=== PATIENT | male | born 1945 | race Caucasian/White ===

== ENCOUNTER 2018-06-05 18:04 | Inpatient (IN) ==
[2018-06-05] MEDS ORDERED: Morphine Inj 4 MG/ML Vial ONE (18:09)
[2018-06-05] MEDS ORDERED: Lidocaine 1%/Epinephrine 1:100,000 Inj 50 ML Vial INFILTRATN ONE (18:20)
[2018-06-05 18:27] LABS: Baso # (Auto) 0.2 th/mm3 (0.0-0.2); Baso % (Auto) 0.9 % (0.0-2.0); Eos # (Auto) 0.9 th/mm3 (0.0-0.4); Eos % (Auto) 4.2 % (0.0-4.0); Hematocrit 37.2 % (39.0-51.0); Hemoglobin 12.3 gm/dL (13.0-17.0); Lymph # (Auto) 1.2 th/mm3 (1.0-4.8); Mean Corpuscular Hemoglobin 27.6 pg (27.0-34.0); Mean Corpuscular Volume 83.6 fL (80.0-100.0); Mean Platelet Volume 8.4 fL (7.0-11.0); Mono # (Auto) 1.2 th/mm3 (0.0-0.9); Mono % (Auto) 5.9 % (0.0-8.0); Platelet Count 284 th/mm3 (150-450); Red Blood Count 4.45 mil/mm3 (4.50-5.90); Red Cell Distribution Width 18.4 % (11.6-17.2); White Blood Count 20.5 th/mm3 (4.0-11.0)
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
[2018-06-05 18:37] LABS: Activated Partial Thrombo Time 21.5 sec (23.4-31.7); INR 1.1 Ratio; Prothrombin Time 10.8 sec (9.8-11.6)
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
--- NOTE | 2018-06-05 18:51 | XR ---
EXAM DATE: 06/05/2018 6:35 PM EST AGE/SEX: 89 years / Male INDICATIONS: Laceration to anterior proximal tibia. CLINICAL DATA: This is the patient's initial encounter. Patient reports that signs and symptoms have been present for 1 day and indicates a pain score of 0/10. MEDICAL/SURGICAL HISTORY: None. None. COMPARISON: . FINDINGS: Bony structures are intact and in normal alignment. Joints are intact. Mild degenerative osteoarthrit is most prominently of the patellofemoral compartment. Osseous density is normal. Soft tissues are u nremarkable. No radiopaque foreign bodies seen. CONCLUSION: 1. No acute fracture. Electronically signed by: Lamonte Garg MD 06/05/2018 6:50 PM EST
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
[2018-06-05 18:56] LABS: Dohle Bodies Present; Eosinophils 5 % (0-4); Lymphocytes 8 % (9-44); Monocytes 2 % (0-8); Platelet Estimate Normal (Normal); Platelet Morphology Normal (Normal)
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
[2018-06-05] MEDS ORDERED: Naloxone Inj 0.4 MG/ML Vial IV.PUSH PRN (19:45)
[2018-06-05] MEDS ORDERED: Bisacodyl 10 MG Supp RECTAL PRN (19:45)
[2018-06-05] MEDS ORDERED: Post-op Orders (for Pharmacy) OTHER ONE (19:45)
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
[2018-06-05] MEDS ORDERED: levETIRAcetam 500 MG Tablet PO SCH (21:00)
[2018-06-05] MEDS ORDERED: Morphine Sulfate Inj 2 MG/ML Vial IV.PUSH PRN (21:23)
[2018-06-05] MEDS ORDERED: Sodium Chloride 0.9% 2 ML Flush PRN IV.FLUSH (21:28)
[2018-06-05] MEDS ORDERED: Clevidipine Inj 25 MG/50 ML VIAL IV.CONT PRN (21:53)
[2018-06-05] MEDS ORDERED: Dextrose 50% in Water 50 ML Vial IV.PUSH PRN (22:17)
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
[2018-06-05] MEDS: Senna/Docusate Sodium 8.6/50 MG Tablet PO SCH (23:10)
[2018-06-05] MEDS: Famotidine 20 MG Tablet PO SCH (23:10)
[2018-06-05] MEDS: Latanoprost 0.005% Opth Drops 2.5 ML Bottle EACH EYE SCH (23:23)
[2018-06-05] MEDS: Cyclopentolate 1% Opth Drops 2 ML Bottle EACH EYE SCH (23:23)
[2018-06-05] MEDS: Dorzolamide-Timolol 2/0.5% Opth Drops 10 ML Bottle EACH EYE SCH (23:24)
[2018-06-05] MEDS: Polymyxin/Trimethop Opth Drops 10 ML Bottle EACH EYE SCH (23:24)
[2018-06-05] MEDS: Ketoralac 0.5% Opth Drops 5 ML Bottle EACH EYE SCH (23:24)
[2018-06-06] MEDS: Insulin NovoLOG Aspart Correctional Sugar Inj SQ SCH ×4 (01:14→19:58)
[2018-06-06] MEDS: Polymyxin/Trimethop Opth Drops 10 ML Bottle EACH EYE SCH ×8 (01:14→21:15)
[2018-06-06 05:21] LABS: Baso # (Auto) 0.1 th/mm3 (0.0-0.2); Baso % (Auto) 0.8 % (0.0-2.0); Eos # (Auto) 0.3 th/mm3 (0.0-0.4); Eos % (Auto) 1.7 % (0.0-4.0); Hematocrit 32.6 % (39.0-51.0); Hemoglobin 10.4 gm/dL (13.0-17.0); Lymph # (Auto) 1.3 th/mm3 (1.0-4.8); Mean Corpuscular Hemoglobin 27.5 pg (27.0-34.0); Mean Platelet Volume 9.1 fL (7.0-11.0); Mono # (Auto) 1.7 th/mm3 (0.0-0.9); Mono % (Auto) 10.2 % (0.0-8.0); Neut # (Auto) 13.1 th/mm3 (1.8-7.7); Neut % (Auto) 79.3 % (16.0-70.0); Platelet Count 248 th/mm3 (150-450); Red Blood Count 3.79 mil/mm3 (4.50-5.90); Red Cell Distribution Width 18.6 % (11.6-17.2); White Blood Count 16.6 th/mm3 (4.0-11.0)
[2018-06-06 05:34] LABS: Calcium 7.9 mg/dL (8.5-10.1); Carbon Dioxide 25.8 meq/L (21.0-32.0); Potassium 4.1 meq/L (3.5-5.1)
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
[2018-06-06] MEDS: Ketoralac 0.5% Opth Drops 5 ML Bottle EACH EYE SCH ×4 (06:50→23:53)
[2018-06-06] MEDS ORDERED: DIFLUPREDNATE EACH EYE SCH (09:00)
[2018-06-06] MEDS: Brimonidine 0.2% Opth Drops 5 ML Bottle EACH EYE SCH ×3 (09:19→17:42)
[2018-06-06] MEDS: Dorzolamide-Timolol 2/0.5% Opth Drops 10 ML Bottle EACH EYE SCH ×2 (09:20→21:14)
[2018-06-06] MEDS: Cyclopentolate 1% Opth Drops 2 ML Bottle EACH EYE SCH ×2 (09:20→21:14)
[2018-06-06] MEDS: amLODIPine 10 MG Tablet PO SCH (09:21)
[2018-06-06] MEDS: Calcium/Vitamin D 250/125 MG Tablet PO SCH ×3 (09:21→17:42)
[2018-06-06] MEDS: Folic Acid 1 MG Tablet PO SCH (09:21)
[2018-06-06] MEDS: Famotidine 20 MG Tablet PO SCH (09:21)
[2018-06-06] MEDS: Senna/Docusate Sodium 8.6/50 MG Tablet PO SCH ×2 (09:21→21:14)
[2018-06-06] MEDS: Gabapentin 100 MG Capsule PO SCH (09:21)
[2018-06-06] MEDS: Sodium Chloride 0.9% 2 ML Flush BID IV.FLUSH SCH ×2 (09:21→21:14)
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
[2018-06-06] MEDS: levETIRAcetam 500 MG Tablet PO SCH ×2 (12:00→21:14)
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
--- NOTE | 2018-06-06 15:28 | MR ---
EXAM DATE: 06/06/2018 3:06 PM EST AGE/SEX: 89 years / Male INDICATIONS: Trauma. CLINICAL DATA: This is the patient's initial encounter. Patient reports that signs and symptoms have been present for 1 day and indicates a pain score of 0/10. MEDICAL/SURGICAL HISTORY: Renal failure, chronic. Hypertension. Diabetes mellitus type II. G laucoma. . Heart valve replacement. COMPARISON: [facility] [place], CT CERVICAL SPINE W/O CONTRAST, 06/05/2018. . TECHNIQUE: Multiplanar, multisequence MRI examination of the cervical spine was performed without co ntrast. FINDINGS: Vertebrae: Normal vertebral body height. Homogeneous marrow signal. Alignment: Normal. Cord: Normal configuration and signal. Post Fossa: The cerebellar tonsils are normal in position. C2-C3: Left paracentral focal disc herniation is noted and results in effacement of the left lateral recess and some mass effect upon the left anterior lateral aspect of the cervical cord. Extruded fra gments extend superiorly at this level. Mild bilateral foraminal narrowing is noted. C3-C4: Left paracentral/lateral focal disc bulge is noted with extruded fragment extending superiorl y and effacing the left lateral recess. Moderate bilateral foraminal narrowing is noted. Mild spinal stenosis is noted. C4-C5: Moderate spinal stenosis, severe left neuroforaminal narrowing and moderate right neuroforami nal narrowing are noted secondary to diffuse asymmetric disc osteophyte complex to the left, uncovert ebral joint spurring and facet joint hypertrophy bilaterally. C5-C6: Mild spinal stenosis, severe left neuroforaminal narrowing and moderate right neuroforaminal are noted secondary to diffuse asymmetric disc osteophyte complex to the left, uncovertebral joint sp urring and facet joint hypertrophy bilaterally. C6-C7: Mild spinal stenosis and mild bilateral foraminal narrowing are noted secondary to diffuse d isc osteophyte complex, uncovertebral joint spurring and facet joint hypertrophy bilaterally. C7-T1: No epidural impressions seen. CONCLUSION: 1. Moderate spinal stenosis, severe left neuroforaminal narrowing and moderate right neuroforaminal narrowing are noted at C4-5 secondary to diffuse asymmetric disc osteophyte complex to the left, unco vertebral joint spurring and facet joint hypertrophy bilaterally. 2. Mild spinal stenosis, severe left neuroforaminal narrowing and moderate right neuroforaminal are noted at C5-6 secondary to diffuse asymmetric disc osteophyte complex to the left, uncovertebral join t spurring and facet joint hypertrophy bilaterally. 3. Mild spinal stenosis and mild bilateral foraminal narrowing at C6-7. 4. Left paracentral focal disc herniation and extruded fragment extending superiorly at C2-3. 5. Left paracentral/lateral focal disc bulge with extruded fragment extending superiorly at C3-4. 6. Moderate bilateral foraminal narrowing at C3-4 and mild bilateral foraminal narrowing at C2-C3. Electronically signed by: Akbar Stein MD 06/06/2018 3:27 PM EST
--- NOTE | 2018-06-06 16:13 | XR ---
EXAM DATE: 06/06/2018 4:08 PM EST AGE/SEX: 89 years / Male INDICATIONS: Follow up fracture. CLINICAL DATA: This is the patient's subsequent encounter. Patient reports that signs and symptoms h ave been present for 2 days and indicates a pain score of Nonresponsive. MEDICAL/SURGICAL HISTORY: Non-responsive. Non-responsive. COMPARISON: No prior exams available for comparison. FINDINGS: Acute minimally displaced fracture involving the left distal clavicle is noted. CONCLUSION: Acute minimally displaced fracture involving left distal clavicle. Electronically signed by: Akbar Stein MD 06/06/2018 4:11 PM EST
--- NOTE | 2018-06-06 17:18 | CT ---
EXAM DATE: 06/06/2018 5:10 PM EST AGE/SEX: 89 years / Male INDICATIONS: Intracerebral Hemorrhage CLINICAL DATA: This is the patient's subsequent encounter. Patient reports that signs and symptoms h ave been present for 1 day and indicates a pain score of 3/10. MEDICAL/SURGICAL HISTORY: Chronic obstructive pulmonary disease. Hypertension. Diabetes. None. RADIATION DOSE: 53.88 CTDI (mGy) COMPARISON: [facility] [place], CT HEAD W/O CONTRAST, 06/05/2018. . TECHNIQUE: CT of the head without contrast. Using automated exposure control and adjustment of the mA and/or kV according to patient size, radiation dose was kept as low as reasonably achievable to ob tain optimal diagnostic quality images. DICOM format image data is available electronically for revi ew and comparison. FINDINGS: Redemonstration of hemorrhagic contusions in the anterior left temporal mid to low convexities. Previ ously noted subdural hematoma in the right temporoparietal mid convexities is not well demonstrated o n current exam. However, there are subarachnoid blood products noted in the parietal mid to high conv exities and small amount of intraventricular blood products. Blood products appear to extend to the f mary. Ventricles are midline and stable in size. No significant midline shift. Basilar cisterns are in tact. Brainstem and cerebellum are intact. There is a large evolving right scalp hematoma. CONCLUSION: 1. Evolving anterior left temporal hemorrhagic contusions. 2. Previously noted subdural hematoma in the right temporal parietal mid convexities is not well dem onstrated on this exam. 3. Subarachnoid hemorrhage overlying the parietal mid to high convexities with small amount of intra ventricular blood products. 4. No midline shift or herniation at this time. . Electronically signed by: Lamonte Garg MD 06/06/2018 5:15 PM EST
[2018-06-06] MEDS: Latanoprost 0.005% Opth Drops 2.5 ML Bottle EACH EYE SCH (21:15)
--- NOTE | 2018-06-06 21:41 | ECHRPT ---
Indication: CONCLUSIONS Normal left ventricular size. Wall thickness is normal. The left ventricular systolic function is low normal with an estimated ejection fraction in the rang e of 50- 55%. The left atrial size is upper limits of normal. Trace mitral valve regurgitation. Mitral annular calcification is present. The aortic valve prosthesis Aortic valve area is 1.3 cm. Aortic valve mean gradient is 20.5 mmHg. The estimated pulmonary arterial pressure is 36 mmHg. BP: / HR: Rhythm: MEASUREMENTS (Male / Female) Normal Values Technical Quality: 2D ECHO LV Diastolic Diameter PLAX 4.5 cm 4.2 - 5.9 / 3.9 - 5.3 cm LV Systolic Diameter PLAX 3.1 cm IVS Diastolic Thickness 1.0 cm 0.6 - 1.0 / 0.6 - 0.9 cm LVPW Diastolic Thickness 0.7 cm 0.6 - 1.0 / 0.6 - 0.9 cm LV Relative Wall Thickness 0.4 RV Internal Dim ED PLAX 2.0 cm LVOT Diameter 2.0 cm LA Systolic Diameter LX 3.7 cm 3.0 - 4.0 / 2.7 - 3.8 cm DOPPLER AV Peak Velocity 312.5 cm/s AV Peak Gradient 39.1 mmHg AV Mean Gradient 20.5 mmHg AV Velocity Time Integral 66.4 cm LVOT Peak Velocity 127.0 cm/s LVOT Peak Gradient 6.5 mmHg LVOT Velocity Time Integral 26.7 cm AV Area Cont Eq vti 1.3 cm AV Area Cont Eq pk 1.3 cm Mitral E Point Velocity 112.0 cm/s Mitral A Point Velocity 104.0 cm/s Mitral E to A Ratio 1.1 LV E' Lateral Velocity 6.2 cm/s Mitral E to LV E' Lateral Ratio 17.9 LV E' Septal Velocity 4.9 cm/s Mitral E to LV E' Septal Ratio 23.0 TR Peak Velocity 255.0 cm/s TR Peak Gradient 26.0 mmHg Right Atrial Pressure 10.0 mmHg Pulmonary Artery Systolic Pressu 36.0 mmHg Right Ventricular Systolic Press 36.0 mmHg FINDINGS LEFT VENTRICLE Normal left ventricular size. Wall thickness is normal. The left ventricular systolic function is low normal with an estimated ejection fraction in the rang e of 50- 55%. RIGHT VENTRICLE Normal right ventricular size and systolic function. LEFT ATRIUM The left atrial size is upper limits of normal. RIGHT ATRIUM The right atrial size is normal. ATRIAL SEPTUM Normal atrial septal thickness without atrial level shunting by limited color doppler interrogation. AORTA The aortic root and proximal ascending aorta are normal in size on limited imaging. MITRAL VALVE Trace mitral valve regurgitation. Mitral annular calcification is present. AORTIC VALVE The aortic valve prosthesis Aortic valve area is 1.3 cm. Aortic valve mean gradient is 20.5 mmHg. TRICUSPID VALVE The estimated pulmonary arterial pressure is 36 mmHg. PULMONARY VALVE No pulmonary valve regurgitation or stenosis. VESSELS The inferior vena cava is normal in size. PERICARDIUM No pericardial effusion. Jono Burgos MD, FACC, [facility] (Electronically Signed) Final Date:06 June 2018 20:22
[2018-06-07] MEDS: Insulin NovoLOG Aspart Correctional Sugar Inj SQ SCH ×4 (00:41→18:56)
[2018-06-07 04:35] LABS: Baso # (Auto) 0.2 th/mm3 (0.0-0.2); Baso % (Auto) 1.1 % (0.0-2.0); Eos # (Auto) 0.6 th/mm3 (0.0-0.4); Eos % (Auto) 4.4 % (0.0-4.0); Hematocrit 29.2 % (39.0-51.0); Hemoglobin 9.5 gm/dL (13.0-17.0); Lymph # (Auto) 1.3 th/mm3 (1.0-4.8); Lymph % (Auto) 9.6 % (9.0-44.0); Mean Corpuscular HGB Conc 32.6 % (32.0-36.0); Mean Corpuscular Hemoglobin 27.9 pg (27.0-34.0); Mean Corpuscular Volume 85.5 fL (80.0-100.0); Mean Platelet Volume 8.9 fL (7.0-11.0); Mono # (Auto) 1.9 th/mm3 (0.0-0.9); Mono % (Auto) 13.7 % (0.0-8.0); Neut # (Auto) 9.8 th/mm3 (1.8-7.7); Neut % (Auto) 71.2 % (16.0-70.0); Platelet Count 233 th/mm3 (150-450); Red Blood Count 3.41 mil/mm3 (4.50-5.90); Red Cell Distribution Width 18.6 % (11.6-17.2); White Blood Count 13.8 th/mm3 (4.0-11.0)
[2018-06-07 04:45] LABS: Alanine Aminotransferase 13 U/L (12-78); Albumin 3.1 g/dL (3.4-5.0); Alkaline Phosphatase 85 U/L (45-117); Anion Gap 13 meq/L (5-15); Aspartate Aminotransferase 16 U/L (15-37); Blood Urea Nitrogen 39 mg/dL (7-18); Calcium 7.8 mg/dL (8.5-10.1); Chloride 103 meq/L (98-107); Glomerular Filtration Rate 7 mL/min (>89); Glucose,Random 80 mg/dL (74-106); Potassium 4.2 meq/L (3.5-5.1); Sodium 139 meq/L (136-145)
[2018-06-07] MEDS: Polymyxin/Trimethop Opth Drops 10 ML Bottle EACH EYE SCH ×8 (05:15→21:54)
[2018-06-07] MEDS: Ketoralac 0.5% Opth Drops 5 ML Bottle EACH EYE SCH ×3 (05:15→18:19)
[2018-06-07] MEDS ORDERED: Haloperidol Inj 5 MG/ML Ampul IV.PUSH PRN (09:11)
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
[2018-06-07] MEDS: Cyclopentolate 1% Opth Drops 2 ML Bottle EACH EYE SCH ×2 (09:52→21:51)
[2018-06-07] MEDS: Dorzolamide-Timolol 2/0.5% Opth Drops 10 ML Bottle EACH EYE SCH ×2 (09:52→21:50)
[2018-06-07] MEDS: Brimonidine 0.2% Opth Drops 5 ML Bottle EACH EYE SCH ×3 (09:52→18:19)
[2018-06-07] MEDS: Folic Acid 1 MG Tablet PO SCH (09:52)
[2018-06-07] MEDS: levETIRAcetam 500 MG Tablet PO SCH ×2 (09:53→21:51)
[2018-06-07] MEDS: Senna/Docusate Sodium 8.6/50 MG Tablet PO SCH ×2 (09:53→21:54)
[2018-06-07] MEDS: Famotidine 20 MG Tablet PO SCH ×2 (09:53→21:53)
[2018-06-07] MEDS: amLODIPine 10 MG Tablet PO SCH (09:53)
[2018-06-07] MEDS: Calcium/Vitamin D 250/125 MG Tablet PO SCH ×3 (09:53→18:06)
[2018-06-07] MEDS: Sod Chloride 0.9% Inj 1,000 ML IV.CONT SCH (09:53)
[2018-06-07] MEDS: Gabapentin 100 MG Capsule PO SCH (09:53)
[2018-06-07] MEDS: Sodium Chloride 0.9% 2 ML Flush BID IV.FLUSH SCH ×2 (09:53→21:53)
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
[2018-06-07] MEDS ORDERED: Sod Chloride 0.9% Inj 1,000 ML OTHER PRN ×2 (15:38)
[2018-06-07] MEDS ORDERED: Albumin Human 25% Inj 100 ML IV.SIG PRN (15:38)
[2018-06-07] MEDS ORDERED: Acetaminophen 325 MG Tablet PO PRN (15:38)
[2018-06-07] MEDS ORDERED: Gelatin 12 MM/7 MM Topical Foam TOPICAL PRN (15:38)
[2018-06-07] MEDS ORDERED: Sod Chloride 0.9% Inj 1,000 ML IV.CONT PRN (15:38)
[2018-06-07] MEDS ORDERED: Heparin 10,000 UNITS/10 ML Vial (for IV use) OTHER PRN ×2 (15:38)
--- NOTE | 2018-06-07 16:18 | P.PNNP ---
Subjective Interval history: Alert and awake. Not oriented. Does not have any complaints. Denies any shortness of breath, chest pain, nausea, or vomiting. <Anel Christian - Last Filed: 06/07/18 16:13> Physical Exam Vital signs: Vital Signs 06/06/18 16:35 06/06/18 17:11 06/06/18 17:12 Temperature Pulse Rate 85 83 Respiratory Rate 26 H Blood Pressure 127/61 Pulse Oximetry 97 06/06/18 18:00 06/06/18 19:00 06/06/18 19:05 Temperature Pulse Rate 74 71 71 Respiratory Rate 18 17 17 Blood Pressure 141/63 H Pulse Oximetry 06/06/18 19:43 06/06/18 20:00 06/06/18 21:00 Temperature 97.7 F Pulse Rate 79 72 Respiratory Rate 21 17 Blood Pressure 143/65 H Pulse Oximetry 98 96 06/06/18 21:05 06/06/18 22:00 06/06/18 23:00 Temperature Pulse Rate 72 75 83 Respiratory Rate 15 22 31 H Blood Pressure 143/65 H Pulse Oximetry 96 92 L 06/06/18 23:05 06/07/18 00:00 06/07/18 01:00 Temperature 99.1 F Pulse Rate 76 90 84 Respiratory Rate 19 19 20 Blood Pressure 158/65 H Pulse Oximetry 94 L 06/07/18 01:05 06/07/18 02:00 06/07/18 03:00 Temperature Pulse Rate 84 82 86 Respiratory Rate 19 18 19 Blood Pressure 146/66 H Pulse Oximetry 06/07/18 03:15 06/07/18 04:00 06/07/18 04:01 Temperature 98.8 F Pulse Rate 92 H 90 91 H Respiratory Rate 30 H 20 32 H Blood Pressure 182/84 H 172/75 H Pulse Oximetry 06/07/18 08:00 06/07/18 08:01 06/07/18 08:50 Temperature 98.4 F Pulse Rate 88 88 90 Respiratory Rate 21 19 Blood Pressure 179/81 H Pulse Oximetry 96 06/07/18 09:01 06/07/18 09:11 06/07/18 09:41 Temperature Pulse Rate 91 H Respiratory Rate 20 Blood Pressure 188/81 H 189/78 H Pulse Oximetry 92 L 99 06/07/18 10:00 06/07/18 10:01 06/07/18 11:00 Temperature Pulse Rate 86 85 89 Respiratory Rate 18 18 23 Blood Pressure 159/70 H Pulse Oximetry 99 99 06/07/18 11:22 06/07/18 12:00 06/07/18 12:01 Temperature Pulse Rate 89 87 88 Respiratory Rate 39 H 21 21 Blood Pressure 179/74 H 170/71 H Pulse Oximetry Intake & Output 06/06/18 06/07/18 06/07/18 18:59 06:59 18:59 Intake Total 300 / 300 240 / 240 Output Total 0 / 0 0 / 0 Balance 300 / 300 240 / 240 Weight 70 kg 66.8 kg Intake: Oral 300 / 300 240 / 240 Output: Urine 0 / 0 0 / 0 Other: # Bowel Movements 0 Weight On Admission 70 kg Narrative: GENERAL: Elderly male, confused. HEENT: Right scalp laceration s/p repair CARDIOVASCULAR: Normal rate and regular rhythm. Murmur. AVF left upper extremity positive thrill and bruit,. RESPIRATORY: Clear to auscultation bilaterally. GASTROINTESTINAL: Abdomen is soft, non-tender, non-distended. Normal active bowel sounds MUSCULOSKELETAL: Extremities without cyanosis, or edema. NEURO: Awake and oriented to self only. Confused. Moves all ext x4 spontaneously. PSYCH: Confused. <Anel Christian - Last Filed: 06/07/18 16:13> Vital signs: Vital Signs 06/08/18 19:00 06/08/18 19:06 06/08/18 19:55 Temperature Pulse Rate 96 H 93 H Respiratory Rate 18 19 Blood Pressure 149/66 H Pulse Oximetry 98 94 L 100 06/08/18 20:00 06/08/18 20:06 06/08/18 21:00 Temperature 97.9 F Pulse Rate 97 H 94 H 97 H Respiratory Rate 21 18 24 Blood Pressure 165/70 H Pulse Oximetry 97 98 06/08/18 21:06 06/08/18 22:00 06/08/18 22:06 Temperature Pulse Rate 97 H 93 H 93 H Respiratory Rate 20 19 21 Blood Pressure 175/77 H 161/70 H Pulse Oximetry 06/08/18 23:00 06/08/18 23:06 06/09/18 00:00 Temperature Pulse Rate 91 H 90 94 H Respiratory Rate 22 20 24 Blood Pressure 156/68 H Pulse Oximetry 96 94 L 06/09/18 00:06 06/09/18 01:00 06/09/18 01:06 Temperature Pulse Rate 93 H 95 H 95 H Respiratory Rate 18 22 23 Blood Pressure 180/78 H 177/76 H 177/76 H Pulse Oximetry 99 98 06/09/18 01:30 06/09/18 02:00 06/09/18 02:01 Temperature Pulse Rate 92 H 92 H Respiratory Rate 18 21 24 Blood Pressure 177/77 H Pulse Oximetry 95 97 06/09/18 02:10 06/09/18 03:00 06/09/18 03:01 Temperature Pulse Rate 87 82 80 Respiratory Rate 21 22 17 Blood Pressure 163/72 H 138/63 Pulse Oximetry 100 98 98 06/09/18 04:00 06/09/18 04:01 06/09/18 04:57 Temperature 97.6 F Pulse Rate 78 77 79 Respiratory Rate 22 16 22 Blood Pressure 145/67 H 148/68 H Pulse Oximetry 100 100 98 06/09/18 05:00 06/09/18 06:00 06/09/18 06:58 Temperature Pulse Rate 79 76 77 Respiratory Rate 18 13 13 Blood Pressure 150/67 H 112/58 L Pulse Oximetry 100 95 95 06/09/18 07:00 06/09/18 07:41 06/09/18 07:58 Temperature Pulse Rate 76 77 Respiratory Rate 13 13 Blood Pressure 163/75 H Pulse Oximetry 94 L 95 95 06/09/18 08:00 06/09/18 08:54 06/09/18 08:58 Temperature 98.3 F Pulse Rate 83 84 86 Respiratory Rate 15 21 33 H Blood Pressure 163/75 H 172/99 H 182/74 H Pulse Oximetry 97 100 100 06/09/18 09:00 06/09/18 09:58 06/09/18 10:00 Temperature Pulse Rate 87 82 79 Respiratory Rate 28 H 16 13 Blood Pressure 147/66 H Pulse Oximetry 100 100 100 06/09/18 10:58 06/09/18 11:00 06/09/18 12:00 Temperature 97.8 F 97.8 F Pulse Rate 73 73 81 Respiratory Rate 15 15 16 Blood Pressure 118/58 L 146/67 H Pulse Oximetry 100 100 06/09/18 12:01 06/09/18 16:00 Temperature 97.7 F Pulse Rate 83 78 Respiratory Rate 20 20 Blood Pressure 146/67 H 149/69 H Pulse Oximetry Intake & Output 06/08/18 06/09/18 06/09/18 18:59 06:59 18:59 Intake Total 480 / 480 860 / 860 860 / 860 Output Total 1999 0 / 0 0 / 0 Balance -1520 / -1520 860 / 860 860 / 860 Weight 67.1 kg 64.8 kg Intake: IV 500 / 500 500 / 500 NS Inj 1,000 ML @ 30 mls/hr IV. 500 / 500 500 / 500 CONT .Q24H ELIZABETH Rx#:[id number] Oral 480 / 480 360 / 360 360 / 360 Output: Urine 0 / 0 0 / 0 Hemodialysis Amount 1999 Other: Date of Last Bowel Movement 06/08/18 06/08/18 06/08/18 # Bowel Movements 1 0 <Hernán Martinez - Last Filed: 06/09/18 18:06> Assessment and Plan - Assessment (1) End-stage renal disease on hemodialysis Code(s): N18.6 - End stage renal disease; Z99.2 - Dependence on renal dialysis Status: Acute Plan: End stage renal disease on Hemodialysis. Left AVF with positive thrill and bruit. Electrolytes and fluid balance stable. Will proceed with HD on regular scheduled days, unless needed. Avoid IVF. Will monitor electrolytes. Hemodialysis planned for tomorrow. (2) Hypertension Code(s): I10 - Essential (primary) hypertension Status: Acute Qualifiers: Hypertension type: unspecified Qualified Code(s): I10 - Essential (primary ) hypertension Plan: Elevated, on amlodipine. Will add hydralazine. (3) Diabetes Code(s): E11.9 - Type 2 diabetes mellitus without complications Status: Acute Qualifiers: Diabetes mellitus type: type 2 Diabetes mellitus [facility] insulin use: unspecified [facility] insulin use status Diabetes mellitus complication status : with kidney complications Diabetes mellitus complication detail: with chronic kidney disease Chronic kidney disease stage: on chronic dialysis Qualified Code(s): E11.22 - Type 2 diabetes mellitus with diabetic chronic kidney disease; N18.6 - End stage renal disease; Z99.2 - Dependence on renal dialysis Plan: Maintain blood sugars between 140 mg/dl to 180 mg/dl while hospitalized. <Anel Christian - Last Filed: 06/07/18 16:13> - Assessment (1) End-stage renal disease on hemodialysis Code(s): N18.6 - End stage renal disease; Z99.2 - Dependence on renal dialysis Status: Acute Plan: Patient seen and examined, agree with above. Patient with end stage renal disease, on HD TTS. Will proceed with HD as schedule. No urgent need for HD. (2) Hypertension Code(s): I10 - Essential (primary) hypertension Status: Acute Qualifiers: Hypertension type: unspecified Qualified Code(s): I10 - Essential (primary ) hypertension (3) Diabetes Code(s): E11.9 - Type 2 diabetes mellitus without complications Status: Acute Qualifiers: Diabetes mellitus type: type 2 Diabetes mellitus [employer] terminal operator insulin use: unspecified [facility] insulin use status Diabetes mellitus complication status : with kidney complications Diabetes mellitus complication detail: with chronic kidney disease Chronic kidney disease stage: on chronic dialysis Qualified Code(s): E11.22 - Type 2 diabetes mellitus with diabetic chronic kidney disease; N18.6 - End stage renal disease; Z99.2 - Dependence on renal dialysis <Hernán Martinez - Last Filed: 06/09/18 18:06>
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
[2018-06-07] MEDS: hydrALAZINE 25 MG Tablet PO SCH (18:06)
[2018-06-07 20:05] LABS: Hemoglobin A1c 7.8 % (4.3-6.0)
[2018-06-07 21:28] LABS: Hepatitis A IgM Antibody Nonreactive (Nonreactive); Hepatitits B Surface Antigen Nonreactive (Nonreactive)
[2018-06-07] MEDS: Latanoprost 0.005% Opth Drops 2.5 ML Bottle EACH EYE SCH (21:54)
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
[2018-06-08] MEDS: Ketoralac 0.5% Opth Drops 5 ML Bottle EACH EYE SCH ×4 (01:34→18:18)
[2018-06-08] MEDS: Insulin NovoLOG Aspart Correctional Sugar Inj SQ SCH ×4 (01:34→18:18)
[2018-06-08] MEDS: Polymyxin/Trimethop Opth Drops 10 ML Bottle EACH EYE SCH ×8 (01:35→22:48)
[2018-06-08 05:14] LABS: Baso # (Auto) 0.2 th/mm3 (0.0-0.2); Eos # (Auto) 0.5 th/mm3 (0.0-0.4); Eos % (Auto) 3.3 % (0.0-4.0); Hematocrit 27.8 % (39.0-51.0); Lymph # (Auto) 0.7 th/mm3 (1.0-4.8); Lymph % (Auto) 4.5 % (9.0-44.0); Mean Corpuscular HGB Conc 32.3 % (32.0-36.0); Mean Corpuscular Hemoglobin 27.9 pg (27.0-34.0); Mean Corpuscular Volume 86.4 fL (80.0-100.0); Mono # (Auto) 1.6 th/mm3 (0.0-0.9); Mono % (Auto) 9.8 % (0.0-8.0); Neut # (Auto) 13.3 th/mm3 (1.8-7.7); Neut % (Auto) 81.4 % (16.0-70.0); Platelet Count 260 th/mm3 (150-450); Red Blood Count 3.22 mil/mm3 (4.50-5.90); White Blood Count 16.4 th/mm3 (4.0-11.0)
[2018-06-08 05:37] LABS: Alanine Aminotransferase 9 U/L (12-78); Albumin 3.4 g/dL (3.4-5.0); Anion Gap 13 meq/L (5-15); Aspartate Aminotransferase 14 U/L (15-37); Blood Urea Nitrogen 61 mg/dL (7-18); Calcium 8.7 mg/dL (8.5-10.1); Chloride 102 meq/L (98-107); Glomerular Filtration Rate 5 mL/min (>89); Glucose,Random 54 mg/dL (74-106); Potassium 4.5 meq/L (3.5-5.1); Sodium 138 meq/L (136-145)
[2018-06-08 05:42] LABS: Alkaline Phosphatase 95 U/L (45-117); Total Protein 7.4 g/dL (6.4-8.2)
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
[2018-06-08] MEDS: Cyclopentolate 1% Opth Drops 2 ML Bottle EACH EYE SCH ×2 (08:30→21:06)
[2018-06-08] MEDS: Brimonidine 0.2% Opth Drops 5 ML Bottle EACH EYE SCH ×3 (08:31→18:18)
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
[2018-06-08] MEDS: hydrALAZINE 25 MG Tablet PO SCH ×3 (11:33→18:17)
[2018-06-08] MEDS: Folic Acid 1 MG Tablet PO SCH (11:58)
[2018-06-08] MEDS: Dorzolamide-Timolol 2/0.5% Opth Drops 10 ML Bottle EACH EYE SCH ×2 (11:58→21:06)
[2018-06-08] MEDS: levETIRAcetam 500 MG Tablet PO SCH ×2 (11:58→21:05)
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
[2018-06-08] MEDS: Famotidine 20 MG Tablet PO SCH ×2 (15:10→21:05)
[2018-06-08] MEDS: Senna/Docusate Sodium 8.6/50 MG Tablet PO SCH ×2 (15:10→21:05)
--- NOTE | 2018-06-08 16:24 | P.PNNP ---
Subjective Interval history: Seen at the end of hemodialysis. Patient remains confused. <Anel Christian - Last Filed: 06/08/18 16:21> Physical Exam Vital signs: Vital Signs 06/07/18 17:00 06/07/18 17:01 06/07/18 18:00 Temperature Pulse Rate 95 H 93 H 93 H Respiratory Rate 27 H 23 28 H Blood Pressure 171/76 H Pulse Oximetry 06/07/18 18:01 06/07/18 19:00 06/07/18 19:01 Temperature Pulse Rate 93 H 90 90 Respiratory Rate 21 35 H 31 H Blood Pressure 187/77 H 176/77 H Pulse Oximetry 95 95 06/07/18 20:00 06/07/18 20:01 06/07/18 21:00 Temperature 97.9 F Pulse Rate 85 85 75 Respiratory Rate 20 Blood Pressure 138/64 Pulse Oximetry 100 99 80 L 06/07/18 21:01 06/07/18 21:07 06/07/18 21:43 Temperature Pulse Rate 75 79 Respiratory Rate 18 33 H Blood Pressure 125/11 L 128/76 Pulse Oximetry 84 L 100 06/07/18 22:00 06/07/18 22:01 06/07/18 23:00 Temperature Pulse Rate 79 79 76 Respiratory Rate 32 H 37 H 30 H Blood Pressure 132/63 Pulse Oximetry 06/08/18 00:00 06/08/18 00:01 06/08/18 04:00 Temperature 98 F 97.6 F Pulse Rate 80 80 74 Respiratory Rate 27 H 24 Blood Pressure 132/62 Pulse Oximetry 06/08/18 08:00 06/08/18 08:01 06/08/18 12:00 Temperature 98.7 F 98.4 F Pulse Rate 76 76 79 Respiratory Rate 19 18 16 Blood Pressure 122/58 L 164/65 H Pulse Oximetry 100 Intake & Output 06/07/18 06/08/18 06/08/18 18:59 06:59 18:59 Intake Total 480 / 480 240 / 240 Output Total 0 / 0 0 / 0 Balance 480 / 480 240 / 240 Weight 67.1 kg Intake: Oral 480 / 480 240 / 240 Output: Urine 0 / 0 0 / 0 Other: # Bowel Movements 0 Narrative: GENERAL: Elderly male, confused. HEENT: Right scalp laceration s/p repair CARDIOVASCULAR: Normal rate and regular rhythm. Murmur. AVF in left upper extremity positive thrill and bruit. RESPIRATORY: Clear to auscultation bilaterally. GASTROINTESTINAL: Abdomen is soft, non-tender, non-distended. Normal active bowel sounds MUSCULOSKELETAL: Extremities without cyanosis, or edema. NEURO: Awake and oriented to self only. Confused. Moves all ext x4 spontaneously. <Anel Christian - Last Filed: 06/08/18 16:21> Vital signs: Vital Signs 06/08/18 19:00 06/08/18 19:06 06/08/18 19:55 Temperature Pulse Rate 96 H 93 H Respiratory Rate 18 19 Blood Pressure 149/66 H Pulse Oximetry 98 94 L 100 06/08/18 20:00 06/08/18 20:06 06/08/18 21:00 Temperature 97.9 F Pulse Rate 97 H 94 H 97 H Respiratory Rate 21 18 24 Blood Pressure 165/70 H Pulse Oximetry 97 98 06/08/18 21:06 06/08/18 22:00 06/08/18 22:06 Temperature Pulse Rate 97 H 93 H 93 H Respiratory Rate 20 19 21 Blood Pressure 175/77 H 161/70 H Pulse Oximetry 06/08/18 23:00 06/08/18 23:06 06/09/18 00:00 Temperature Pulse Rate 91 H 90 94 H Respiratory Rate 22 20 24 Blood Pressure 156/68 H Pulse Oximetry 96 94 L 06/09/18 00:06 06/09/18 01:00 06/09/18 01:06 Temperature Pulse Rate 93 H 95 H 95 H Respiratory Rate 18 22 23 Blood Pressure 180/78 H 177/76 H 177/76 H Pulse Oximetry 99 98 06/09/18 01:30 06/09/18 02:00 06/09/18 02:01 Temperature Pulse Rate 92 H 92 H Respiratory Rate 18 21 24 Blood Pressure 177/77 H Pulse Oximetry 95 97 06/09/18 02:10 06/09/18 03:00 06/09/18 03:01 Temperature Pulse Rate 87 82 80 Respiratory Rate 21 22 17 Blood Pressure 163/72 H 138/63 Pulse Oximetry 100 98 98 06/09/18 04:00 06/09/18 04:01 06/09/18 04:57 Temperature 97.6 F Pulse Rate 78 77 79 Respiratory Rate 22 16 22 Blood Pressure 145/67 H 148/68 H Pulse Oximetry 100 100 98 06/09/18 05:00 06/09/18 06:00 06/09/18 06:58 Temperature Pulse Rate 79 76 77 Respiratory Rate 18 13 13 Blood Pressure 150/67 H 112/58 L Pulse Oximetry 100 95 95 06/09/18 07:00 06/09/18 07:41 06/09/18 07:58 Temperature Pulse Rate 76 77 Respiratory Rate 13 13 Blood Pressure 163/75 H Pulse Oximetry 94 L 95 95 06/09/18 08:00 06/09/18 08:54 06/09/18 08:58 Temperature 98.3 F Pulse Rate 83 84 86 Respiratory Rate 15 21 33 H Blood Pressure 163/75 H 172/99 H 182/74 H Pulse Oximetry 97 100 100 06/09/18 09:00 06/09/18 09:58 06/09/18 10:00 Temperature Pulse Rate 87 82 79 Respiratory Rate 28 H 16 13 Blood Pressure 147/66 H Pulse Oximetry 100 100 100 06/09/18 10:58 06/09/18 11:00 06/09/18 12:00 Temperature 97.8 F 97.8 F Pulse Rate 73 73 81 Respiratory Rate 15 15 16 Blood Pressure 118/58 L 146/67 H Pulse Oximetry 100 100 06/09/18 12:01 06/09/18 16:00 Temperature 97.7 F Pulse Rate 83 78 Respiratory Rate 20 20 Blood Pressure 146/67 H 149/69 H Pulse Oximetry Intake & Output 06/08/18 06/09/18 06/09/18 18:59 06:59 18:59 Intake Total 480 / 480 860 / 860 860 / 860 Output Total 1999 0 / 0 0 / 0 Balance -1520 / -1520 860 / 860 860 / 860 Weight 67.1 kg 64.8 kg Intake: IV 500 / 500 500 / 500 NS Inj 1,000 ML @ 30 mls/hr IV. 500 / 500 500 / 500 CONT .Q24H ELIZABETH Rx#:[id number] Oral 480 / 480 360 / 360 360 / 360 Output: Urine 0 / 0 0 / 0 Hemodialysis Amount 1999 Other: Date of Last Bowel Movement 06/08/18 06/08/18 06/08/18 # Bowel Movements 1 0 <Guillermo Martinez Q - Last Filed: 06/09/18 18:34> Assessment and Plan - Assessment (1) End-stage renal disease on hemodialysis Code(s): N18.6 - End stage renal disease; Z99.2 - Dependence on renal dialysis Status: Acute Plan: Patient seen and examined, agree with above. Patient with End stage renal disease and on HD, TTS. Last HD was done on Sat. Continue HD TTS. No urgent need for HD. (2) Hypertension Code(s): I10 - Essential (primary) hypertension Status: Acute Qualifiers: Hypertension type: unspecified Qualified Code(s): I10 - Essential (primary ) hypertension Plan: Elevated, on amlodipine. Will add hydralazine. 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 <Anel Christian - Last Filed: 06/08/18 16:21> - Assessment (1) End-stage renal disease on hemodialysis Code(s): N18.6 - End stage renal disease; Z99.2 - Dependence on renal dialysis Status: Acute (2) Hypertension Code(s): I10 - Essential (primary) hypertension Status: Acute Qualifiers: Hypertension type: unspecified Qualified Code(s): I10 - Essential (primary ) hypertension (3) Diabetes Code(s): E11.9 - Type 2 diabetes mellitus without complications Status: Acute Qualifiers: Diabetes mellitus type: type 2 Diabetes mellitus half-way insulin use: unspecified half-way insulin use status Diabetes mellitus complication status : with kidney complications Diabetes mellitus complication detail: with chronic kidney disease Chronic kidney disease stage: on chronic dialysis Qualified Code(s): E11.22 - Type 2 diabetes mellitus with diabetic chronic kidney disease; N18.6 - End stage renal disease; Z99.2 - Dependence on renal dialysis <Hernán Martinez - Last Filed: 06/09/18 18:34>
[2018-06-08] MEDS: Gabapentin 100 MG Capsule PO SCH (17:56)
[2018-06-08] MEDS: amLODIPine 10 MG Tablet PO SCH (17:56)
[2018-06-08] MEDS: Calcium/Vitamin D 250/125 MG Tablet PO SCH ×2 (17:57→18:17)
[2018-06-08] MEDS: Sodium Chloride 0.9% 2 ML Flush BID IV.FLUSH SCH ×2 (17:57→21:06)
[2018-06-08] MEDS: Heparin - SQ 10,000 UNITS/ML Vial SQ SCH ×2 (18:19→22:48)
[2018-06-08] MEDS: Sod Chloride 0.9% Inj 1,000 ML IV.CONT SCH (21:04)
[2018-06-08] MEDS: Latanoprost 0.005% Opth Drops 2.5 ML Bottle EACH EYE SCH (21:06)
[2018-06-09] MEDS: Ketoralac 0.5% Opth Drops 5 ML Bottle EACH EYE SCH ×4 (00:52→17:42)
[2018-06-09] MEDS: Insulin NovoLOG Aspart Correctional Sugar Inj SQ SCH ×4 (00:52→18:24)
[2018-06-09] MEDS: Polymyxin/Trimethop Opth Drops 10 ML Bottle EACH EYE SCH ×8 (00:53→22:20)
--- NOTE | 2018-06-09 04:16 | XR ---
EXAM DATE: 06/09/2018 4:08 AM EST AGE/SEX: 89 years / Male INDICATIONS: Trauma. CLINICAL DATA: This is the patient's subsequent encounter. Patient reports that signs and symptoms h ave been present for 4 - 6 days and indicates a pain score of Nonresponsive. MEDICAL/SURGICAL HISTORY: . Intracerebral Hemorrhage. Chronic obstructive pulmonary disease. Hy pertension. Diabetes. Non-responsive. [place] [facility] [place]. . FINDINGS: A single AP view of the chest demonstrates enlarging bilateral pleural effusions and bibasilar consol idations. Heart is normal in size. Median sternotomy wires. CONCLUSION: Enlarging bilateral pleural effusions and bibasilar infiltrates. Electronically signed by: Pierre Araya MD 06/09/2018 4:15 AM EST
[2018-06-09 04:41] LABS: Baso # (Auto) 0.1 th/mm3 (0.0-0.2); Baso % (Auto) 0.6 % (0.0-2.0); Eos # (Auto) 0.5 th/mm3 (0.0-0.4); Eos % (Auto) 4.3 % (0.0-4.0); Hematocrit 24.7 % (39.0-51.0); Hemoglobin 8.1 gm/dL (13.0-17.0); Lymph # (Auto) 0.5 th/mm3 (1.0-4.8); Lymph % (Auto) 4.4 % (9.0-44.0); Mean Corpuscular HGB Conc 32.9 % (32.0-36.0); Mono # (Auto) 1.3 th/mm3 (0.0-0.9); Mono % (Auto) 11.5 % (0.0-8.0); Neut # (Auto) 8.9 th/mm3 (1.8-7.7); Neut % (Auto) 79.2 % (16.0-70.0); Platelet Count 245 th/mm3 (150-450); Red Cell Distribution Width 18.2 % (11.6-17.2); White Blood Count 11.3 th/mm3 (4.0-11.0)
[2018-06-09 04:59] LABS: Alanine Aminotransferase 9 U/L (12-78); Albumin 3.1 g/dL (3.4-5.0); Alkaline Phosphatase 89 U/L (45-117); Anion Gap 12 meq/L (5-15); Aspartate Aminotransferase 18 U/L (15-37); Blood Urea Nitrogen 41 mg/dL (7-18); Calcium 8.4 mg/dL (8.5-10.1); Carbon Dioxide 26.8 meq/L (21.0-32.0); Chloride 99 meq/L (98-107); Glomerular Filtration Rate 7 mL/min (>89); Glucose,Random 151 mg/dL (74-106); Sodium 138 meq/L (136-145)
[2018-06-09 05:09] LABS: Potassium 4.4 meq/L (3.5-5.1)
[2018-06-09] MEDS: Heparin - SQ 10,000 UNITS/ML Vial SQ SCH ×3 (06:09→22:20)
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
[2018-06-09] MEDS: levETIRAcetam 500 MG Tablet PO SCH ×2 (10:01→21:01)
[2018-06-09] MEDS: amLODIPine 10 MG Tablet PO SCH (10:01)
[2018-06-09] MEDS: Calcium/Vitamin D 250/125 MG Tablet PO SCH ×3 (10:01→17:42)
[2018-06-09] MEDS: Gabapentin 100 MG Capsule PO SCH (10:01)
[2018-06-09] MEDS: hydrALAZINE 25 MG Tablet PO SCH ×3 (10:01→17:42)
[2018-06-09] MEDS: Famotidine 20 MG Tablet PO SCH ×2 (10:01→21:01)
[2018-06-09] MEDS: Folic Acid 1 MG Tablet PO SCH (10:01)
[2018-06-09] MEDS: Sodium Chloride 0.9% 2 ML Flush BID IV.FLUSH SCH ×2 (10:02→21:02)
[2018-06-09] MEDS: Cyclopentolate 1% Opth Drops 2 ML Bottle EACH EYE SCH ×2 (10:02→21:01)
[2018-06-09] MEDS: Brimonidine 0.2% Opth Drops 5 ML Bottle EACH EYE SCH ×3 (10:02→17:42)
[2018-06-09] MEDS: Senna/Docusate Sodium 8.6/50 MG Tablet PO SCH ×2 (10:02→21:01)
[2018-06-09] MEDS: Dorzolamide-Timolol 2/0.5% Opth Drops 10 ML Bottle EACH EYE SCH ×2 (10:02→21:01)
--- NOTE | 2018-06-09 10:34 | P.PNNP ---
Subjective Interval history: Patient remains confused. Oriented to self only. Hemodialysis yesterday tolerated well. <GueritaloganAnel - Last Filed: 06/09/18 16:16> Physical Exam Vital signs: Vital Signs 06/08/18 12:00 06/08/18 16:00 06/08/18 19:00 Temperature 98.4 F 98.9 F Pulse Rate 79 93 H 96 H Respiratory Rate 16 22 18 Blood Pressure 164/65 H Pulse Oximetry 98 06/08/18 19:06 06/08/18 19:55 06/08/18 20:00 Temperature 97.9 F Pulse Rate 93 H 97 H Respiratory Rate 19 21 Blood Pressure 149/66 H Pulse Oximetry 94 L 100 97 06/08/18 20:06 06/08/18 21:00 06/08/18 21:06 Temperature Pulse Rate 94 H 97 H 97 H Respiratory Rate 18 24 20 Blood Pressure 165/70 H 175/77 H Pulse Oximetry 98 06/08/18 22:00 06/08/18 22:06 06/08/18 23:00 Temperature Pulse Rate 93 H 93 H 91 H Respiratory Rate 19 21 22 Blood Pressure 161/70 H Pulse Oximetry 06/08/18 23:06 06/09/18 00:00 06/09/18 00:06 Temperature Pulse Rate 90 94 H 93 H Respiratory Rate 20 24 18 Blood Pressure 156/68 H 180/78 H Pulse Oximetry 96 94 L 99 06/09/18 01:00 06/09/18 01:06 06/09/18 01:30 Temperature Pulse Rate 95 H 95 H Respiratory Rate 22 23 18 Blood Pressure 177/76 H 177/76 H Pulse Oximetry 98 06/09/18 02:00 06/09/18 02:01 06/09/18 02:10 Temperature Pulse Rate 92 H 92 H 87 Respiratory Rate 21 24 21 Blood Pressure 177/77 H 163/72 H Pulse Oximetry 95 97 100 06/09/18 03:00 06/09/18 03:01 06/09/18 04:00 Temperature 97.6 F Pulse Rate 82 80 78 Respiratory Rate 22 17 22 Blood Pressure 138/63 Pulse Oximetry 98 98 100 06/09/18 04:01 06/09/18 04:57 06/09/18 05:00 Temperature Pulse Rate 77 79 79 Respiratory Rate 16 22 18 Blood Pressure 145/67 H 148/68 H Pulse Oximetry 100 98 100 06/09/18 06:00 06/09/18 06:58 06/09/18 07:00 Temperature Pulse Rate 76 77 76 Respiratory Rate 13 13 13 Blood Pressure 150/67 H 112/58 L Pulse Oximetry 95 95 94 L 06/09/18 07:41 06/09/18 07:58 06/09/18 08:00 Temperature 98.3 F Pulse Rate 77 83 Respiratory Rate 13 15 Blood Pressure 163/75 H 163/75 H Pulse Oximetry 95 95 97 06/09/18 08:54 06/09/18 08:58 06/09/18 09:00 Temperature Pulse Rate 84 86 87 Respiratory Rate 21 33 H 28 H Blood Pressure 172/99 H 182/74 H Pulse Oximetry 100 100 100 06/09/18 09:58 06/09/18 10:00 Temperature Pulse Rate 82 79 Respiratory Rate 16 13 Blood Pressure 147/66 H Pulse Oximetry 100 100 Intake & Output 06/08/18 06/09/18 06/09/18 18:59 06:59 18:59 Intake Total 480 / 480 860 / 860 Output Total 1999 0 / 0 Balance -1520 / -1520 860 / 860 Weight 67.1 kg 64.8 kg Intake: IV 500 / 500 NS Inj 1,000 ML @ 30 mls/hr IV. 500 / 500 CONT .Q24H [facility] Rx#:[id number] Oral 480 / 480 360 / 360 Output: Urine 0 / 0 Hemodialysis Amount 1999 Other: Date of Last Bowel Movement 06/08/18 06/08/18 06/08/18 # Bowel Movements 1 Narrative: GENERAL: Elderly male, confused. HEENT: Right scalp laceration s/p repair CARDIOVASCULAR: Normal rate and regular rhythm. Murmur. AVF in left upper extremity positive thrill and bruit. RESPIRATORY: Clear to auscultation bilaterally. GASTROINTESTINAL: Abdomen is soft, non-tender, non-distended. Normal active bowel sounds MUSCULOSKELETAL: Extremities without cyanosis, or edema. NEURO: Awake and oriented to self only. Confused. Moves all ext x4 spontaneously. <Anel Christian - Last Filed: 06/09/18 16:16> Vital signs: Vital Signs 06/09/18 19:01 06/09/18 19:58 06/09/18 20:00 Temperature 97.8 F Pulse Rate 84 90 88 Respiratory Rate 23 22 24 Blood Pressure 140/63 Pulse Oximetry 95 94 L 06/09/18 20:37 06/09/18 20:58 06/09/18 21:00 Temperature Pulse Rate 87 86 Respiratory Rate 20 21 Blood Pressure 131/63 Pulse Oximetry 95 95 95 06/10/18 00:00 06/10/18 04:00 06/10/18 08:00 Temperature 99.2 F 99.0 F 97.2 F L Pulse Rate 87 88 82 Respiratory Rate 18 18 Blood Pressure 150/67 H 162/69 H 155/69 H Pulse Oximetry 98 95 94 L 06/10/18 08:28 Temperature Pulse Rate Respiratory Rate Blood Pressure Pulse Oximetry 93 L Intake & Output 06/09/18 06/10/18 06/10/18 18:59 06:59 18:59 Intake Total 860 / 860 Output Total 0 / 0 1000 / 1000 Balance 860 / 860 -1000 / -1000 Intake: IV 500 / 500 NS Inj 1,000 ML @ 30 mls/hr IV. 500 / 500 CONT .Q24H [facility] Rx#:[id number] Oral 360 / 360 Output: Urine 0 / 0 Hemodialysis Amount 1000 / 1000 Other: Date of Last Bowel Movement 06/08/18 06/08/18 # Bowel Movements 0 <Guillermo Martinez Q - Last Filed: 06/10/18 18:32> Assessment and Plan - Assessment (1) End-stage renal disease on hemodialysis Code(s): N18.6 - End stage renal disease; Z99.2 - Dependence on renal dialysis Status: Acute Plan: End stage renal disease on Hemodialysis. Left AVF with positive thrill and bruit. Electrolytes and fluid balance stable. Will proceed with HD on regular scheduled days, unless needed. Avoid IVF. Will monitor electrolytes. Hemodialysis yesterday with UF of 2 liters. Hemodialysis planned for tomorrow. (2) Hypertension Code(s): I10 - Essential (primary) hypertension Status: Acute Qualifiers: Hypertension type: unspecified Qualified Code(s): I10 - Essential (primary ) hypertension Plan: Better controlled, will monitor. (3) Diabetes Code(s): E11.9 - Type 2 diabetes mellitus without complications Status: Acute Qualifiers: Diabetes mellitus type: type 2 Diabetes mellitus assisted insulin use: unspecified intermediate teacher insulin use status Diabetes mellitus complication status : with kidney complications Diabetes mellitus complication detail: with chronic kidney disease Chronic kidney disease stage: on chronic dialysis Qualified Code(s): E11.22 - Type 2 diabetes mellitus with diabetic chronic kidney disease; N18.6 - End stage renal disease; Z99.2 - Dependence on renal dialysis Plan: Maintain blood sugars between 140 mg/dl to 180 mg/dl while hospitalized. <Anel Christian - Last Filed: 06/09/18 16:16> - Assessment (1) End-stage renal disease on hemodialysis Code(s): N18.6 - End stage renal disease; Z99.2 - Dependence on renal dialysis Status: Chronic Plan: Patient seen and examined, agree with above. Continue HD TTS. (2) Hypertension Code(s): I10 - Essential (primary) hypertension Status: Chronic Qualifiers: Qualified Code(s): I10 - Essential (primary) hypertension (3) Diabetes Code(s): E11.9 - Type 2 diabetes mellitus without complications Status: Acute Qualifiers: Qualified Code(s): E11.22 - Type 2 diabetes mellitus with diabetic chronic kidney disease; N18.6 - End stage renal disease; Z99.2 - Dependence on renal dialysis <Hernán Martinez - Last Filed: 06/10/18 18:32>
[2018-06-09] MEDS: Sod Chloride 0.9% Inj 1,000 ML IV.CONT SCH (13:05)
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
[2018-06-09] MEDS: Latanoprost 0.005% Opth Drops 2.5 ML Bottle EACH EYE SCH (21:02)
[2018-06-10 00:35] VITALS: RESP 18
[2018-06-10] MEDS: Polymyxin/Trimethop Opth Drops 10 ML Bottle EACH EYE SCH ×5 (02:58→13:01)
[2018-06-10] MEDS: Insulin NovoLOG Aspart Correctional Sugar Inj SQ SCH ×3 (02:59→12:59)
[2018-06-10] MEDS: Ketoralac 0.5% Opth Drops 5 ML Bottle EACH EYE SCH ×3 (02:59→13:00)
[2018-06-10] MEDS: Heparin - SQ 10,000 UNITS/ML Vial SQ SCH ×2 (06:32→13:03)
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
[2018-06-10 07:56] LABS: Baso # (Auto) 0.1 th/mm3 (0.0-0.2); Baso % (Auto) 0.8 % (0.0-2.0); Eos # (Auto) 0.5 th/mm3 (0.0-0.4); Eos % (Auto) 4.9 % (0.0-4.0); Hematocrit 26.7 % (39.0-51.0); Hemoglobin 8.6 gm/dL (13.0-17.0); Lymph # (Auto) 0.9 th/mm3 (1.0-4.8); Mean Corpuscular HGB Conc 32.2 % (32.0-36.0); Mean Corpuscular Hemoglobin 27.9 pg (27.0-34.0); Mean Corpuscular Volume 86.7 fL (80.0-100.0); Mean Platelet Volume 8.7 fL (7.0-11.0); Mono # (Auto) 1.2 th/mm3 (0.0-0.9); Mono % (Auto) 12.7 % (0.0-8.0); Neut # (Auto) 7.1 th/mm3 (1.8-7.7); Neut % (Auto) 72.6 % (16.0-70.0); Platelet Count 267 th/mm3 (150-450); Red Blood Count 3.08 mil/mm3 (4.50-5.90); Red Cell Distribution Width 18.2 % (11.6-17.2); White Blood Count 9.8 th/mm3 (4.0-11.0)
[2018-06-10 08:05] LABS: Albumin 3.2 g/dL (3.4-5.0); Anion Gap 15 meq/L (5-15); Aspartate Aminotransferase 6 U/L (15-37); Blood Urea Nitrogen 61 mg/dL (7-18); Calcium 8.6 mg/dL (8.5-10.1); Carbon Dioxide 24.6 meq/L (21.0-32.0); Chloride 100 meq/L (98-107); Glomerular Filtration Rate 5 mL/min (>89); Glucose,Random 107 mg/dL (74-106); Potassium 4.1 meq/L (3.5-5.1); Sodium 140 meq/L (136-145)
[2018-06-10 08:08] LABS: Alanine Aminotransferase 6 U/L (12-78); Alkaline Phosphatase 85 U/L (45-117); Total Protein 7.1 g/dL (6.4-8.2)
[2018-06-10 08:29] VITALS: O2SAT 93
[2018-06-10 08:35] VITALS: BP 155/69; PULSE 82; TEMP 97.2
[2018-06-10] MEDS: hydrALAZINE 25 MG Tablet PO SCH ×2 (12:02→13:03)
[2018-06-10] MEDS: Brimonidine 0.2% Opth Drops 5 ML Bottle EACH EYE SCH ×2 (12:02→13:00)
[2018-06-10] MEDS: Dorzolamide-Timolol 2/0.5% Opth Drops 10 ML Bottle EACH EYE SCH (12:02)
[2018-06-10] MEDS: Cyclopentolate 1% Opth Drops 2 ML Bottle EACH EYE SCH (12:02)
[2018-06-10] MEDS: Folic Acid 1 MG Tablet PO SCH (12:02)
[2018-06-10] MEDS: Senna/Docusate Sodium 8.6/50 MG Tablet PO SCH (12:03)
[2018-06-10] MEDS: Famotidine 20 MG Tablet PO SCH (12:03)
[2018-06-10] MEDS: Gabapentin 100 MG Capsule PO SCH (12:03)
[2018-06-10] MEDS: Sodium Chloride 0.9% 2 ML Flush BID IV.FLUSH SCH (12:03)
[2018-06-10] MEDS: Calcium/Vitamin D 250/125 MG Tablet PO SCH ×2 (12:03→13:02)
[2018-06-10] MEDS: amLODIPine 10 MG Tablet PO SCH (12:03)
[2018-06-10] MEDS: Sod Chloride 0.9% Inj 1,000 ML IV.CONT SCH (12:03)
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
[2018-06-10] MEDS: levETIRAcetam 500 MG Tablet PO SCH (13:02)
== END 2018-06-10 16:07 ==
LOC: NEPI 18:04 → NEDA 19:01 → EDBD 19:01 → NEDA 21:20 → N03 21:25 → N05 06-10 00:33
PROVIDERS: ADMIT Surgery; ATTEND Surgery
DX: S01.01XA Laceration without foreign body of scalp, initial encounter; S22.021A Stable burst fracture of second thoracic vertebra, initial encounter for closed fracture; Z99.2 Dependence on renal dialysis; Y92.410 Unspecified street and highway as the place of occurrence of the external cause; G93.40 Encephalopathy, unspecified; Z80.9 Family history of malignant neoplasm, unspecified; Z79.899 Other long term (current) drug therapy; S06.5X9A Traumatic subdural hemorrhage with loss of consciousness of unspecified duration, initial encounter; Z79.4 Long term (current) use of insulin; E11.22 Type 2 diabetes mellitus with diabetic chronic kidney disease; S42.032A Displaced fracture of lateral end of left clavicle, initial encounter for closed fracture; R09.02 Hypoxemia; R48.8 Other symbolic dysfunctions; J44.9 Chronic obstructive pulmonary disease, unspecified; S22.011A Stable burst fracture of first thoracic vertebra, initial encounter for closed fracture; Z95.2 Presence of prosthetic heart valve; I13.2 Hypertensive heart and chronic kidney disease with heart failure and with stage 5 chronic kidney disease, or end stage renal disease; I50.9 Heart failure, unspecified; S06.6X9A Traumatic subarachnoid hemorrhage with loss of consciousness of unspecified duration, initial encounter; V43.52XA Car driver injured in collision with other type car in traffic accident, initial encounter; I25.10 Atherosclerotic heart disease of native coronary artery without angina pectoris; N18.6 End stage renal disease; F01.51 Vascular dementia, unspecified severity, with behavioral disturbance; F17.210 Nicotine dependence, cigarettes, uncomplicated; Z82.49 Family history of ischemic heart disease and other diseases of the circulatory system; M48.02 Spinal stenosis, cervical region; M50.21 Other cervical disc displacement, high cervical region